=== PATIENT | female | born 1985 | race Caucasian/White ===

== ENCOUNTER 2022-12-29 10:40 | Emergency (ER) | payer OTHER, SELFPAY ==
[2022-12-29 11:12] VITALS: BP 111/70; PULSE 57; RESP 18; TEMP 36.7; O2SAT 98
--- NOTE | 2022-12-30 12:40 | ED.GENADUL_ITS ---
Discharge Plan Disposition Patient Disposition: Home Discharge Details Clinical Impression: Tick bite Primary Care Provider: [facility]up[facility],Local ED Provider: Carlene Barrientos Home Meds and New Rx's Prescriptions: New doxycycline hyclate 100 mg capsule 200 mg PO DAILY Qty: 2 0RF Discharge Instructions Instructions: Lyme Disease (ED), Tick Bite (ED) Additional Instructions: A deer tick was noted on exam today, it does not appear that the tick has been attached for longer than 36 hours, nor was it engorged I would not recommend treating you with doxycycline at this time but I will give you a single prescription if you do have a tick that has been attached for longer than 36 hours or engorged You do not need antibiotics for this particular tick bite Please be reevaluated should you develop erythema migrans rash, flulike illness, joint aches and pains Discharge Data Discharge Date/Time-TO BE ENTERED AT DEPARTURE: 12/29/22 11:46 Medical Decision Making Patient presents with reported tick bite Tick was likely not attached for 36 hours, did supply a single 200 mg dose of doxycycline Return precautions discussed and patient expressed understanding HPI General Date/Time Provider Initiated Documentation: 12/29/22 11:35 . HPI Narrative: This 37-year-old female presents with tick bite to right calf that was noted this morning. Was not engorged, presents to the ED with take in bag. Arrived from call back yesterday. Related Data Home Medications Medication Instructions Recorded Confirmed doxycycline hyclate 100 mg capsule 200 mg PO DAILY #2 caps 12/29/22 Previous Rx's Medication Instructions Recorded doxycycline hyclate 100 mg capsule 200 mg PO DAILY #2 caps 12/29/22 Allergies Allergy/AdvReac Type Severity Reaction Status Date / Time No Known Allergies Allergy Unverified 12/29/22 11:14 General Stated Complaint: InsectBite RICKY: 4 PFSH All Active Problems (Updated 12/29/22 @ 11:41 by YOKASTA Fitzpatrick) Tick bite (Acute) Social History Smoking/Tobacco Use Status: Never Smoking risk assessment performed?: Yes Alcohol Intake: current Substance use type: does not use Exam Extrem Other: Small area of erythema where tick was attached, no evidence of erythema migrans rash Course Vital Signs Vital signs: Vital Signs Temperature 36.7 C 12/29/22 11:12 Pulse 57 L 12/29/22 11:12 Respiratory Rate 18 12/29/22 11:12 Blood Pressure 111/70 12/29/22 11:12 Pulse Oximetry 98 12/29/22 11:12 Temperature 36.7 C 12/29/22 11:12 Temperature Source Oral 12/29/22 11:12 Pulse 57 L 12/29/22 11:12 Respiratory Rate 18 12/29/22 11:12 Respiratory Effort Normal, Non-Labored 12/29/22 11:13 Blood Pressure 111/70 12/29/22 11:12 Pulse Oximetry 98 12/29/22 11:12 Oxygen Delivery Method Room Air 12/29/22 11:12 Oxygen Flow Rate 0 12/29/22 11:12 PAWSS Have you Been Recently Intoxicated or Drunk Within the Last 30 days?: Yes Have you Ever Experienced Previous Episodes of Alcohol Withdrawal?: No Have you ever Experienced Withdrawal Seizures?: No Have you ever Experienced Delirium Tremens(DT)s?: No Have you ever undergone Alcohol Rehabilitation Treatment (i.e, inpt ot outpatient treatment programs)?: No Have you ever Experienced Blackouts?: No Have you ever Combined Alcohol with other Downers within the last 90 days?: No Have you ever Combined Alcohol with any other Substance of Abuse during the last 90 days?: No Positive Blood Alcohol level on Presentation? [PCS.BAL]: No Evidence of Increased Autonomic Activity (i.e. HR>120, tremor, sweating, agitation, nausea)?: No Result: 1
== END 2022-12-29 11:46 | disposition home or self-care (01) ==
PROVIDERS: Emergency Provider Physician Assistant
DX: S81.851A Open bite, right lower leg, initial encounter (principal); W57.XXXA Bitten or stung by nonvenomous insect and other nonvenomous arthropods, initial encounter
CPT/HCPCS: 99283